=== PATIENT | male | born 1990 | race Caucasian/White ===

== ENCOUNTER 2017-10-25 08:30 | Emergency (ER) | payer OTHER ==
[~2017-10-25] VITALS: Ht 170.2 cm; Wt 68.9 kg
[~2017-10-25 08:30] MED LIST: CEPH500T PO
[2017-10-25 08:36] VITALS: BP 137/62; PULSE 62; RESP 16; TEMP 98.4; O2SAT 99
[2017-10-25 09:00] VITALS: O2SAT 98
[2017-10-25] MEDS ORDERED: KETOROLAC TROMETHAMINE 30 MG/ML (IVP) VIAL IV PUSH ONE (09:00)
[2017-10-25] MEDS ORDERED: SODIUM CHLORIDE 0.9% FLUSH 10 ML FLUSH IVF PRN (09:00)
[2017-10-25 09:07] VITALS: BP_SYST 140; BP_SYST 141; BP_DIAS 68
[2017-10-25 09:12] LABS: AUTOMATED NEUTROPHIL # 3.1 TH/MM3 (1.8-7.7); BASOPHIL # 0.1 TH/MM3 (0-0.2); BASOPHIL % 1.2 % (0.0-2.0); EOSINOPHIL # 0.4 TH/MM3 (0-0.4); EOSINOPHIL % 6.1 % (0.0-4.0); HEMATOCRIT 41.5 % (39.0-51.0); HEMO FLAGS DIFF FINAL; LYMPH % 40.8 % (9.0-44.0); LYMPHOCYTE # 2.8 TH/MM3 (1.0-4.8); MEAN CELL VOLUME 94.1 FL (80.0-100.0); MEAN CORPUSCULAR HEMOGLOBIN 29.9 PG (27.0-34.0); MEAN CORPUSCULAR HGB CONC 31.8 % (32.0-36.0); MONO % 6.4 % (0.0-8.0); NEUT % 45.5 % (16.0-70.0); PLATELET COUNT 170 TH/MM3 (150-450); RED BLOOD COUNT 4.41 MIL/MM3 (4.50-5.90); RED CELL DISTRIBUTION WIDTH 12.4 % (11.6-17.2); WHITE BLOOD COUNT 6.8 TH/MM3 (4.0-11.0)
--- NOTE | 2017-10-25 09:17 | RADRPT ---
EXAM DATE/TIME: 10/25/2017 09:07 [place] COMPARISON: No previous studies available for comparison. INDICATIONS : Left lower chest pain x 1 week. MEDICAL HISTORY : Asthma. Former smoker. SURGICAL HISTORY : None. ENCOUNTER: Initial ACUITY: 1 week PAIN SCORE: 6/10 LOCATION: Left lower chest FINDINGS: PA and lateral views of the chest demonstrate a normal-sized cardiac silhouette. There is no effusion , consolidation, or pneumothorax. The bones and soft tissues demonstrate no acute abnormality. CONCLUSION: No acute cardiopulmonary abnormality is identified. Julien Barrera MD on October 25, 2017 at 9:15 Board Certified Radiologist. This report was verified electronically.
[2017-10-25 09:38] LABS: INTERNATIONAL NORMALIZED RATIO 1.1 RATIO; PROTHROMBIN TIME - PATIENT 10.7 SEC (9.8-11.6)
[2017-10-25 09:55] LABS: CHLORIDE 110 MEQ/L (98-107); POTASSIUM 3.9 MEQ/L (3.5-5.1); SODIUM (NA) 143 MEQ/L (136-145)
[2017-10-25 09:59] LABS: ANION GAP 7 MEQ/L (5-15); BICARBONATE 26.1 MEQ/L (21.0-32.0); BLOOD UREA NITROGEN 16 MG/DL (7-18)
[2017-10-25 10:02] LABS: ALT (GPT) 37 U/L (12-78); AST (GOT) 23 U/L (15-37); GLOMERULAR FILTRATION RATE 97 ML/MIN (>89)
[2017-10-25 10:03] LABS: TOTAL BILIRUBIN ADULT 0.4 MG/DL (0.2-1.0)
[2017-10-25 10:05] LABS: ALKALINE PHOSPHATASE 56 U/L (45-117)
--- NOTE | 2017-10-25 10:32 | PD ---
HPI Chief Complaint: Chest Pain Time Seen by Provider: 08:50 Travel History International Travel<30 days: No Contact w/Intl Traveler<30days: No Traveled to known affect area: No History of Present Illness HPI Patient is a 26 year old male who comes in complaining of chest pain. He says he has had the pain all week, but it got worse today. He says the pain is on his left side really the left lower rib and left upper abdomen. He does nothing makes it better or worse. He's had some coughing. He denies any shortness of breath. He does smoke cigarettes, but denies any other drug use. He has not taken anything for the pain. He denies fever or chills. PFSH Past Medical History Asthma: Yes Tetanus Vaccination: < 5 Years Influenza Vaccination: No Past Surgical History Surgical History: No Previous Surgery Social History Alcohol Use: No Tobacco Use: Yes (2 CIG DAILY) Substance Use: No Allergies-Medications (Allergen,Severity, Reaction): Coded Allergies: No Known Allergies (Unverified Adverse Reaction, Unknown, 10/25/17) Reported Meds & Prescriptions Reported Meds & Active Scripts Active No Active Prescriptions or Reported Medications Review of Systems Except as stated in HPI: all other systems reviewed are Neg General / Constitutional: No: Fever, Chills HENT: No: Headaches Cardiovascular: Positive: Chest Pain or Discomfort Respiratory: Positive: Cough, No: Shortness of Breath Gastrointestinal: No: Nausea, Vomiting Musculoskeletal: No: Myalgias, Edema Skin: No Rash, No Change in Pigmentation Neurologic: No: Weakness, Dizziness Physical Exam Narrative GENERAL: Awake and alert, in no acute distress. SKIN: Focused skin assessment warm/dry. HEAD: Atraumatic. Normocephalic. EYES: Pupils equal and round. No scleral icterus. ENT: Mucous membranes pink and moist. NECK: Trachea midline. No JVD. CARDIOVASCULAR: Regular rate and rhythm. No murmur appreciated. RESPIRATORY: No accessory muscle use. Clear to auscultation. Breath sounds equal bilaterally. GASTROINTESTINAL: Abdomen soft, non-tender, nondistended. MUSCULOSKELETAL: No obvious deformities. No clubbing. No cyanosis. No edema. NEUROLOGICAL: Awake and alert. No obvious cranial nerve deficits. Motor grossly within normal limits. Normal speech. PSYCHIATRIC: Appropriate mood and affect; insight and judgment normal. Data Data Last Documented VS Vital Signs Date Time Temp Pulse Resp B/P (MAP) Pulse Ox O2 Delivery O2 Flow Rate FiO2 10/25/17 09:07 140/68 (92) 141/68 (92) 10/25/17 09:00 98 Room Air 10/25/17 08:43 58 10/25/17 08:36 98.4 16 Orders Orders Complete Blood Count With Diff (10/25/17 08:56) Comprehensive Metabolic Panel (10/25/17 08:56) D-Dimer (10/25/17 08:56) Prothrombin Time / Inr (Pt) (10/25/17 08:56) Act Partial Throm Time (Ptt) (10/25/17 08:56) Troponin I (10/25/17 08:56) Ecg Monitoring (10/25/17 08:56) Bilateral Bp Monitoring (10/25/17 08:56) Iv Access Insert/Monitor (10/25/17 08:56) Oximetry (10/25/17 08:56) Sodium Chloride 0.9% Flush (Ns Flush) (10/25/17 09:00) Chest, Pa & Lat (10/25/17 08:56) Ketorolac Inj (Toradol Inj) (10/25/17 09:00) Labs Laboratory Tests Test 10/25/17 09:05 White Blood Count 6.8 TH/MM3 Red Blood Count 4.41 MIL/MM3 Hemoglobin 13.2 GM/DL Hematocrit 41.5 % Mean Corpuscular Volume 94.1 FL Mean Corpuscular Hemoglobin 29.9 PG Mean Corpuscular Hemoglobin Concent 31.8 % Red Cell Distribution Width 12.4 % Platelet Count 170 TH/MM3 Mean Platelet Volume 7.9 FL Neutrophils (%) (Auto) 45.5 % Lymphocytes (%) (Auto) 40.8 % Monocytes (%) (Auto) 6.4 % Eosinophils (%) (Auto) 6.1 % Basophils (%) (Auto) 1.2 % Neutrophils # (Auto) 3.1 TH/MM3 Lymphocytes # (Auto) 2.8 TH/MM3 Monocytes # (Auto) 0.4 TH/MM3 Eosinophils # (Auto) 0.4 TH/MM3 Basophils # (Auto) 0.1 TH/MM3 CBC Comment DIFF FINAL Differential Comment Prothrombin Time 10.7 SEC Prothromb Time International Ratio 1.1 RATIO Activated Partial Thromboplast Time 26.0 SEC D-Dimer Quantitative (PE/DVT) LESS THAN 0.19 MG/L FEU Blood Urea Nitrogen 16 MG/DL Creatinine 0.95 MG/DL Random Glucose 101 MG/DL Total Protein 7.0 GM/DL Albumin 3.6 GM/DL Calcium Level 8.9 MG/DL Alkaline Phosphatase 56 U/L Aspartate Amino Transf (AST/SGOT) 23 U/L Alanine Aminotransferase (ALT/SGPT) 37 U/L Total Bilirubin 0.4 MG/DL Sodium Level 143 MEQ/L Potassium Level 3.9 MEQ/L Chloride Level 110 MEQ/L Carbon Dioxide Level 26.1 MEQ/L Anion Gap 7 MEQ/L Estimat Glomerular Filtration Rate 97 ML/MIN Troponin I LESS THAN 0.02 NG/ML MDM Medical Decision Making Medical Screen Exam Complete: Yes Emergency Medical Condition: Yes Interpretation(s) ECG shows sinus bradycardia at 57, early re-pole. Differential Diagnosis Costochondritis versus pneumothorax versus pneumonia versus viral illness versus ACS (unlikely). Narrative Course Patient is a 26-year-old male comes in complaining of chest pain. Exam shows no acute abnormalities. IV established, labs sent. Troponin and d-dimer are negative. Chest x-ray shows no acute abnormalities. Patient given a dose of Toradol. He is advised to quit smoking. Advised to take Tylenol or ibuprofen as needed for pain. Advised follow-up with a primary doctor. Advised to return to the ED as needed for any worsening symptoms. Diagnosis Primary Impression: Chest pain Qualified Codes: R07.9 - Chest pain, unspecified Referrals: [facility] call for appointment Patient Instructions: Chest Pain (ED), General Instructions Additional Instructions: Take Tylenol or ibuprofen as needed for pain. Try to quit smoking. Follow-up with a primary care doctor. Return to the ED as needed for any worsening symptoms. Scripts No Active Prescriptions or Reported Meds Disposition: 01 DISCHARGE HOME Condition: Stable Luz Elena Valadez MD Oct 25, 2017 10:32
[2017-10-25 10:35] VITALS: BP 127/59; PULSE 58; RESP 16; O2SAT 99
--- NOTE | 2017-10-26 13:30 | EKG ---
Date Performed: 10/25/2017 Time Performed: 08:47:12 PTAGE: 26 years EKG: SINUS BRADYCARDIA WITH SINUS ARRHYTHMIA POSSIBLE LEFT ATRIAL ENLARGEMENT EARLY REPOLARIZATI ON BORDERLINE ECG NO PREVIOUS TRACING DOCTOR: Ranjith Vuong Interpretating Date/Time 10/26/2017 13:28:11
== END 2017-10-25 10:43 | disposition home or self-care (01) ==
LOC: PHED 08:30
DX: R07.9 Chest pain, unspecified (principal); R94.31 Abnormal electrocardiogram [ECG] [EKG]; J45.909 Unspecified asthma, uncomplicated; Z72.0 Tobacco use
CPT/HCPCS: 71020; 80053; 84484; 85025; 85379; 85610; 85730; 93005; 96374; 99284; J1885